=== PATIENT | female | born 1955 | race Caucasian/White ===

== ENCOUNTER → 2016-07-03 | Outpatient (CLI) | payer OTHER ==
[~2016-07-03] MED LIST: ADALAT CC30 MG PO; ALLEGRA 180MG180 MG PO; BIOFLAX1000 MG PO; DARVOCET N 101 UDTAB PO; FLONASE NASAL S16 GM NS; FOLIC ACID0.4 MG PO; L-LYSINE1000 MG PO; MAGNESIUM250 M1 PO; NATURAL E400 IU PO; PRINIVIL10 MG PO; PROZAC 20MG20 MG PO; VITAMIN B-6100 MG PO; ZANTAC 150MG T150 MG PO; ZESTRIL20 MG PO; restful legs PO
== END ==
LOC: COL.PUL 13:52
DX: M34.89 Other systemic sclerosis (principal); R94.2 Abnormal results of pulmonary function studies

== ENCOUNTER → 2021-07-22 | Outpatient (CLI) | payer OTHER | LOC: COL.RAD 09:49 | DX: M47.816 Spondylosis without myelopathy or radiculopathy, lumbar region (principal); M47.817 Spondylosis without myelopathy or radiculopathy, lumbosacral region; M17.11 Unilateral primary osteoarthritis, right knee ==